=== PATIENT | male | born 1950 | race Two or more races ===

== ENCOUNTER 2022-03-24 12:45 | Emergency (ER) | payer MEDICARE, OTHER ==
[~2022-03-24] VITALS: Ht 170.2 cm; Wt 113.4 kg
[2022-03-24 12:45] VITALS: BP 166/81
== END 2022-03-24 13:17 | disposition left against medical advice (07) ==
LOC: ER 12:45 → EDBD 12:45 → ER 13:17
DX: R10.9 Unspecified abdominal pain (principal); I10 Essential (primary) hypertension; Z53.21 Procedure and treatment not carried out due to patient leaving prior to being seen by health care provider
CPT/HCPCS: 93005